=== PATIENT | female | born 1950 | race Caucasian/White ===

== ENCOUNTER 2018-04-13 14:53 | Emergency (ER) | payer OTHER ==
[~2018-04-13] VITALS: Ht 167.6 cm; Wt 76.2 kg
[~2018-04-13 14:53] MED LIST: HYDROCODONE-AP1 EAC6 PO
[2018-04-13] MEDS ORDERED: NORCO 5-325 TA1 EACH PO (16:53)
[2018-04-13] MEDS ORDERED: VALIUM5 MG PO (16:53)
== END 2018-04-13 17:07 | disposition home or self-care (01) ==
LOC: ER 14:53
DX: M54.5 Low back pain (principal); M62.830 Muscle spasm of back; Z88.2 Allergy status to sulfonamides

== ENCOUNTER 2018-10-10 14:51 | Emergency (ER) | payer OTHER ==
[~2018-10-10] VITALS: Ht 160 cm; Wt 74.8 kg
[~2018-10-10 14:51] MED LIST changes: +NORCO 5-325 TA1 EACH PO; +VALIUM5 MG PO
[2018-10-10] MEDS ORDERED: TRAMADOL 50 MG50 MG PO (15:55)
[2018-10-10] MEDS ORDERED: MOBIC7.5 MG PO (15:55)
[2018-10-10 16:31] VITALS: BP 174/93
[2018-10-10] MEDS ORDERED: NORCO 5-325 TA1 EACH PO (16:31)
== END 2018-10-10 16:31 | disposition home or self-care (01) ==
LOC: ER 14:51
DX: M25.511 Pain in right shoulder (principal); M25.521 Pain in right elbow; Z88.2 Allergy status to sulfonamides